=== PATIENT | male | born 1995 | race Caucasian/White ===

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

== ENCOUNTER 2018-08-31 22:50 | Emergency (ER) | payer OTHER ==
[~2018-08-31] VITALS: Ht 177.8 cm; Wt 77.1 kg
[~2018-08-31 22:50] MED LIST: BACLOFEN10 MG PO; CYCLOBENZAPRINE10 MG PO; FLUOXETINE HCL20 MG PO; KETOROLAC TROME10 MG PO; NAPROXEN500 MG PO; SERTRALINE HCL25 MG PO
[2018-09-01] MEDS ORDERED: NORCO 5-325 TA1 EACH PO (00:30)
== END 2018-09-01 00:50 | disposition home or self-care (01) ==
LOC: ED 22:50
DX: S16.1XXA Strain of muscle, fascia and tendon at neck level, initial encounter (principal); S39.012A Strain of muscle, fascia and tendon of lower back, initial encounter; S29.012A Strain of muscle and tendon of back wall of thorax, initial encounter; F17.200 Nicotine dependence, unspecified, uncomplicated; Z79.899 Other long term (current) drug therapy; V89.2XXA Person injured in unspecified motor-vehicle accident, traffic, initial encounter
CPT/HCPCS: 70450; 72125; 72128; 72131; 99283-25

== ENCOUNTER 2018-11-22 09:49 | Emergency (ER) | payer OTHER, BC ==
[~2018-11-22] VITALS: Ht 177.8 cm; Wt 77.1 kg
[~2018-11-22 09:49] MED LIST changes: +NORCO 5-325 TA1 EACH PO
== END 2018-11-22 10:59 | disposition home or self-care (01) ==
LOC: ED 09:49
DX: S97.81XA Crushing injury of right foot, initial encounter (principal); W22.8XXA Striking against or struck by other objects, initial encounter; F17.200 Nicotine dependence, unspecified, uncomplicated; Z79.899 Other long term (current) drug therapy
CPT/HCPCS: 73630; 99283

== ENCOUNTER 2021-08-12 08:10 | Emergency (ER) | payer OTHER ==
[~2021-08-12] VITALS: Ht 177.8 cm; Wt 77.1 kg
--- NOTE | ~2021-08-12 | EKG ---
[facility] [address] [facility] [place], [place] [address] Draft EK completed, results pending confirmation PATIENT NAME: JANETTBOB DEL CASTILLO Electrocardiogram DATE OF : 89 PHYSICIAN: PRELIMINARY REPORT #: [id number] REPORT IS CONFIDENTIAL AND NOT TO BE RELEASED WITHOUT AUTHORIZATION
[2021-08-12] MEDS ORDERED: PREDNISONE20 MG PO (09:50)
== END 2021-08-12 10:15 | disposition home or self-care (01) ==
LOC: ED 08:10
DX: R07.9 Chest pain, unspecified (principal); J45.909 Unspecified asthma, uncomplicated; M54.14 Radiculopathy, thoracic region; F17.200 Nicotine dependence, unspecified, uncomplicated
CPT/HCPCS: 36415; 71045; 80048; 84484; 85025; 85379; 93005; 93010; 94640; 94664; 99285-25; J7512